=== PATIENT | female | born 1940 | race Caucasian/White ===

== ENCOUNTER 2018-05-13 19:45 | Emergency (ER) | payer MEDICARE, OTHER ==
[~2018-05-13] VITALS: Ht 165.1 cm; Wt 81.6 kg
[2018-05-13] MEDS ORDERED: TETANUS,DIPTH,PERTUSS P/F (BOOSTRIX) 0.5 ML VIAL IM ONE (20:30)
--- NOTE | 2018-05-13 20:30 | ED Fall/Injury ---
General Stated Complaint: CUT ON FACE FROM FALL,HIT HEAD, DIZZINESS,HIP PAIN Source: patient, family Exam Limitations: no limitations History of Present Illness Date Seen by Provider: May 13, 2018 Time Seen by Provider: 20:26 Initial Comments To ER per private vehicle from home with reports of a fall. She fell sometime this afternoon and struck the right side of her face where she has a laceration over the right eyebrow. She is uncertain whether or not she lost consciousness. She states that she might have gotten dizzy before she fell or she might have tripped but she is not entirely sure. She does state that she has been sleeping quite a lot lately about 16-20 hours a day. She has seen Dr. Dr. Frias for this which has been an ongoing problem for about a month. She states that Dr. Dr. Frias has done blood work and told her that she has depression and that' s why she was sleeping so much. She does agree that she does feel depressed. Patient states she did not want to come to the emergency room by his daughter insisted that she come. Occurred: just prior to arrival Severity: moderate Context: unknown Loss of Consciousness: unsure Associated Symptoms (Fall): No Headache, No Neck Pain Allergies and Home Medications Allergies Uncoded Allergies: PAIN MEDICATIONS (Adverse Reaction, 05/10/10) Patient Home Medication List Home Medication List Reviewed: Yes Review of Systems Review of Systems Constitutional: see HPI Eyes: No Symptoms Reported Ears, Nose, Mouth, Throat: no symptoms reported Respiratory: no symptoms reported Cardiovascular: no symptoms reported Musculoskeletal: no symptoms reported Skin: no symptoms reported Psychiatric/Neurological: No Symptoms Reported Past Rjnzzvj-Uljmnw-Zibzdh Hx Patient Social History Recent Foreign Travel: No Contact w/Someone Who Travel: No Physical Exam Vital Signs Vital Signs - First Documented 05/13/18 20:20 Temp 96.0 Pulse 73 Resp 14 B/P (MAP) 122/69 (86) Pulse Ox 96 O2 Delivery Room Air Capillary Refill : Height, Weight, BMI Height: '" Weight: lbs. oz. kg; BMI Method: General Appearance: WD/WN, no apparent distress HEENT: PERRL/EOMI, normal ENT inspection, other (2 semi-laceration to the lateral aspect of the right eyebrow.) Neck: non-tender, full range of motion Respiratory: normal breath sounds, no respiratory distress, no accessory muscle use Gastrointestinal: normal bowel sounds, non tender Neurologic/Psychiatric: alert, normal mood/affect, oriented x 3 Skin: normal color, warm/dry Clarisse Coma Score Best Eye Response: (4) Open Spontaneously Best Verbal Response: (5) Oriented Best Motor Response: (6) Obeys Commands Clarisse Total: 15 Procedures/Interventions Wound Location: Face Wound Length (cm): 2 Wound's Depth, Shape: linear, sub Q Wound Explored: clean Irrigated w/ Saline (ccs): 20 Anesthesia: 1% Lidocaine Volume Anesthetic (ccs): 2 Suture: Prolene Suture Size: 5-0 Number of Sutures: 4 Layer Closure?: 1 Number Deep Layer Sutures: 0 Progress Area anesthetized with 2 mL of 1% lidocaine without epinephrine. Wound then scrubbed with chlorhexidine/saline solution. Wound then irrigated with 20 mL of the same. Wound then sutured with 4 simple interrupted sutures size 5-0 Prolene. Progress/Results/Core Measures Results/Orders Lab Results Laboratory Tests Test 05/13/18 20:45 05/13/18 20:52 Range/Units White Blood Count 8.6 4.3-11.0 10^3/uL Red Blood Count 4.17 L 4.35-5.85 10^6/uL Hemoglobin 12.3 11.5-16.0 G/DL Hematocrit 37 35-52 % Mean Corpuscular Volume 90 80-99 FL Mean Corpuscular Hemoglobin 29 25-34 PG Mean Corpuscular Hemoglobin Concent 33 32-36 G/DL Red Cell Distribution Width 13.6 10.0-14.5 % Platelet Count 333 130-400 10^3/uL Mean Platelet Volume 9.5 7.4-10.4 FL Neutrophils (%) (Auto) 60 42-75 % Lymphocytes (%) (Auto) 29 12-44 % Monocytes (%) (Auto) 7 0-12 % Eosinophils (%) (Auto) 3 0-10 % Basophils (%) (Auto) 1 0-10 % Neutrophils # (Auto) 5.2 1.8-7.8 X 10^3 Lymphocytes # (Auto) 2.5 1.0-4.0 X 10^3 Monocytes # (Auto) 0.6 0.0-1.0 X 10^3 Eosinophils # (Auto) 0.3 0.0-0.3 10^3/uL Basophils # (Auto) 0.0 0.0-0.1 10^3/uL Sodium Level 140 135-145 MMOL/L Potassium Level 4.1 3.6-5.0 MMOL/L Chloride Level 106 98-107 MMOL/L Carbon Dioxide Level 23 21-32 MMOL/L Anion Gap 11 5-14 MMOL/L Blood Urea Nitrogen 26 H 7-18 MG/DL Creatinine 0.94 0.60-1.30 MG/DL Estimat Glomerular Filtration Rate 58 BUN/Creatinine Ratio 28 Glucose Level 108 H 70-105 MG/DL Calcium Level 10.2 H 8.5-10.1 MG/DL Corrected Calcium 8.5-10.1 MG/DL Total Bilirubin 0.5 0.1-1.0 MG/DL Aspartate Amino Transf (AST/SGOT) 24 5-34 U/L Alanine Aminotransferase (ALT/SGPT) 22 0-55 U/L Alkaline Phosphatase 77 40-136 U/L Total Protein 7.3 6.4-8.2 GM/DL Albumin 4.6 H 3.2-4.5 GM/DL Thyroid Stimulating Hormone (TSH) 1.13 0.35-4.94 UIU/ML Free Thyroxine 1.13 0.70-1.48 NG/DL Urine Color YELLOW Urine Clarity CLEAR Urine pH 6 5-9 Urine Specific Helotes 1.025 H 1.016-1.022 Urine Protein NEGATIVE NEGATIVE Urine Glucose (UA) NEGATIVE NEGATIVE Urine Ketones NEGATIVE NEGATIVE Urine Nitrite NEGATIVE NEGATIVE Urine Bilirubin NEGATIVE NEGATIVE Urine Urobilinogen NORMAL NORMAL MG/DL Urine Leukocyte Esterase 3+ H NEGATIVE Urine RBC (Auto) NEGATIVE NEGATIVE Urine RBC NONE /HPF Urine WBC 10-25 H /HPF Urine Squamous Epithelial Cells 10-25 H /HPF Urine Crystals NONE /LPF Urine Bacteria MODERATE H /HPF Urine Casts NONE /LPF Urine Mucus SMALL H /LPF Urine Culture Indicated YES My Orders Orders - ROSANNA KAMINSKI APRN Cbc With Automated Diff (05/13/18 20:18) Comprehensive Metabolic Panel (05/13/18 20:18) Ua Culture If Indicated (05/13/18 20:18) Ct Head/Cervical Spine Wo (05/13/18 20:18) Pelvis With Right Hip 2-3views (05/13/18 20:24) Thyroid Stimulating Hormone (05/13/18 20:24) Ekg Tracing (05/13/18 20:24) Free T4 (Free Thyroxine) (05/13/18 20:24) Dipht,Pertuss(Acell),Tet Adult (Boostrix (05/13/18 20:30) Lidocaine 1% Inj 20 Ml (Xylocaine 1% Inj (05/13/18 20:45) Urine Culture (05/13/18 20:52) Sulfamethoxazole/Trimet Ds Tab (Bactrim (05/13/18 21:30) Shoulder, Left, 3 Views (05/13/18 21:39) Medications Given in ED Current Medications Medications Dose Ordered Sig/James Route Start Time Stop Time Status Last Admin Dose Admin Diphtheria/ Tetanus/Acell Pertussis 0.5 ml ONCE ONCE IM 05/13/18 20:30 05/13/18 20:31 DC 05/13/18 21:21 0.5 ML Vital Signs/I&O 05/13/18 20:20 Temp 96.0 Pulse 73 Resp 14 B/P (MAP) 122/69 (86) Pulse Ox 96 O2 Delivery Room Air Departure Impression Primary Impression: Fall Qualified Codes: W19.XXXA - Unspecified fall, initial encounter Additional Impressions: Facial laceration Qualified Codes: S01.81XA - Laceration without foreign body of other part of head, initial encounter Urinary tract infection Qualified Codes: N30.00 - Acute cystitis without hematuria Disposition: HOME, SELF-CARE Condition: Stable Departure-Patient Inst. Decision time for Depature: 21:41 Referrals: RENETTA FRIAS DO (PCP) Primary Care Physician NO,LOCAL PHYSICIAN (Family) Primary Care Physician Patient Instructions: Laceration Repair With Stitches (DC) Add. Discharge Instructions: 1. Return to ER in 5-7 days to have the stitches removed at the time of your convenience. You may shower allowing water run over the starting tonight. Take the antibiotics as directed for the bladder infection. Return to ER for any worsening in the meantime. Call Dr. FRIAS tomorrow to make an appointment to be seen for follow-up. Scripts Sulfamethoxazole/Trimethoprim (Bactrim Ds Tablet) 1 Each Tablet 1 EACH PO BID, #10 TAB Prov: ROSANNA KAMINSKI APRN 05/13/18 Images Head/Face 1 - ROSANNA KAMINSKI APRN May 13, 2018 20:30
[2018-05-13] MEDS ORDERED: LIDOCAINE 1% INJ 20 ML 20 ML VIAL INJ ONE (20:45)
[2018-05-13 20:52] LABS: BASOPHILS % (AUTO) 1 % (0-10); EOSINOPHILS # (AUTO) 0.3 10^3/uL (0.0-0.3); EOSINOPHILS % (AUTO) 3 % (0-10); HEMATOCRIT 37 % (35-52); HEMOGLOBIN 12.3 G/DL (11.5-16.0); LYMPHOCYTES # (AUTO) 2.5 X 10^3 (1.0-4.0); LYMPHOCYTES % (AUTO) 29 % (12-44); MEAN CORPUSCULAR HEMOGLOBIN 29 PG (25-34); MEAN CORPUSCULAR HGB CONC 33 G/DL (32-36); MEAN CORPUSCULAR VOLUME 90 FL (80-99); MEAN PLATELET VOLUME 9.5 FL (7.4-10.4); MONOCYTES # (AUTO) 0.6 X 10^3 (0.0-1.0); MONOCYTES % (AUTO) 7 % (0-12); NEUTROPHILS # (AUTO) 5.2 X 10^3 (1.8-7.8); NEUTROPHILS % (AUTO) 60 % (42-75); PLATELET COUNT 333 10^3/uL (130-400); RED BLOOD COUNT 4.17 10^6/uL (4.35-5.85); RED CELL DISTRIBUTION WIDTH 13.6 % (10.0-14.5); WHITE BLOOD COUNT 8.6 10^3/uL (4.3-11.0)
[2018-05-13 20:57] LABS: BILIRUBIN,URINE NEGATIVE (NEGATIVE); CLARITY,URINE CLEAR; COLOR,URINE YELLOW; GLUCOSE, URINE (UA) NEGATIVE (NEGATIVE); KETONES,URINE NEGATIVE (NEGATIVE); LEUKOCYTE ESTERASE ,URINE 3+ (NEGATIVE); NITRITE,URINE NEGATIVE (NEGATIVE); PH,URINE 6 (5-9); PROTEIN,URINE NEGATIVE (NEGATIVE); UROBILINOGEN,URINE NORMAL (NORMAL)
[2018-05-13 21:04] LABS: BACTERIA,URINE MODERATE /HPF
[2018-05-13 21:09] LABS: ALANINE AMINOTRANSFERASE 22 U/L (0-55); ALBUMIN 4.6 GM/DL (3.2-4.5); ALKALINE PHOSPHATASE 77 U/L (40-136); BILIRUBIN,TOTAL 0.5 MG/DL (0.1-1.0); BUN/CREATININE RATIO 28; CALCIUM 10.2 MG/DL (8.5-10.1); CARBON DIOXIDE 23 MMOL/L (21-32); CHLORIDE 106 MMOL/L (98-107); CREATININE SERUM 0.94 MG/DL (0.60-1.30); GFR ESTIMATED 58; GLUCOSE 108 MG/DL (70-105); POTASSIUM 4.1 MMOL/L (3.6-5.0); SODIUM 140 MMOL/L (135-145); TOTAL PROTEIN 7.3 GM/DL (6.4-8.2)
--- NOTE | 2018-05-13 21:28 | Diagnostic Imaging Report ---
PROCEDURE: CT head and CT cervical spine without contrast. TECHNIQUE: Multiple contiguous axial images were obtained through the brain and cervical spine without the use of intravenous contrast. Sagittal and coronal reformations through the cervical spine were then performed. INDICATION: Fall, hit head COMPARISON: None available FINDINGS: Age-appropriate volume loss. No intracranial hemorrhage. No intracranial mass, mass effect, midline shift, herniation, hydrocephalus, or extra-axial fluid collection. No CT evidence of an acute ischemic infarction. The bilateral ocular lenses are absent. Mild right periorbital soft tissue swelling, particularly superior laterally. The globes are intact. Retrobulbar fat is unremarkable. The paranasal sinuses are clear. The calvarium is intact. Mild apex left curvature of the cervical spine. No significant retrolisthesis. Very minimal anterolisthesis of C7 on T1 measuring under 2 mm. No additional anterolisthesis or retrolisthesis. Alignment of the atlantooccipital joint is well maintained. Vertebral body heights are well-maintained. Mild multilevel disc space height loss without severe disc space height loss. No acute fracture or dislocation. No destructive osseous process. Scattered facet joint degenerative changes and uncovertebral joint hypertrophy. No high-grade osseous central canal stenosis. No apical pneumothorax. The paraspinal soft tissues are unremarkable. IMPRESSION: No acute intracranial abnormality. No acute osseous abnormality within the cervical spine with mild multilevel degenerative changes. Age-appropriate volume loss involving the brain. Mild right periorbital soft tissue swelling without underlying fracture. Dictated by: Dictated on workstation # [id number]
[2018-05-13 21:29] LABS: FREE T4 (FREE THYROXINE) 1.13 NG/DL (0.70-1.48)
[2018-05-13] MEDS ORDERED: TRIM/SULFAMETH 160/800 (SEPTRA DS) TAB PO ONE (21:30)
--- NOTE | 2018-05-13 21:32 | Diagnostic Imaging Report ---
INDICATION: Fall, pain COMPARISON: None available TECHNIQUE: 3 radiographs of the pelvis and right hip dated 05/13/2018. FINDINGS: Mild degenerative changes within the visualized lower lumbar spine. The sacroiliac joints are intact. No acute fracture or dislocation. No destructive osseous process. Mild degenerative changes of the bilateral hips. The right femoral head maintains normal shape and contour. IMPRESSION: No acute osseous abnormality with mild degenerative changes. Dictated by: Dictated on workstation # [id number]
[2018-05-13] MEDS ORDERED: SULF1TAB35 PO (21:43)
[2018-05-13 22:10] VITALS: BP 153/76
--- NOTE | 2018-05-13 22:27 | Diagnostic Imaging Report ---
INDICATION: Chronic left shoulder pain COMPARISON: None available. TECHNIQUE: 3 radiographs of the left shoulder dated 05/13/2018. FINDINGS: Mild degenerative changes of the acromioclavicular joint. No acute fracture or dislocation. No destructive osseous process. Subacromial space is well-maintained. Mild degenerative changes of the glenohumeral joint with inferiorly projecting osteophytes. Thinly circumscribed lucency associated with the superolateral humeral head is identified, favored to relate to subchondral cyst formation. The visualized left lung is clear. IMPRESSION: No acute osseous abnormality with mild degenerative changes. Dictated by: Dictated on workstation # [id number]
== END 2018-05-13 22:15 | disposition home or self-care (01) ==
LOC: EDUNIT# 19:45 → ER 19:48
DX: S01.81XA Laceration without foreign body of other part of head, initial encounter (principal); N39.0 Urinary tract infection, site not specified; F32.9 Major depressive disorder, single episode, unspecified; R40.2142 Coma scale, eyes open, spontaneous, at arrival to emergency department; R40.2252 Coma scale, best verbal response, oriented, at arrival to emergency department; R40.2362 Coma scale, best motor response, obeys commands, at arrival to emergency department; Z23 Encounter for immunization; Z88.6 Allergy status to analgesic agent; W01.198A Fall on same level from slipping, tripping and stumbling with subsequent striking against other object, initial encounter; Y92.009 Unspecified place in unspecified non-institutional (private) residence as the place of occurrence of the external cause
CPT/HCPCS: 36415; 70450; 72125; 73030; 80053; 81000; 84439; 84443; 85025; 87077; 87088; 90471; 90715; 93005

== ENCOUNTER → 2022-04-16 | Outpatient (CLI) | payer MEDICARE, OTHER ==
[~2022-04-16] MED LIST: RT-ALBUTEROL SULF 2.5 MG/3 ML PRE-MIX VIAL INH ONE; SULF1TAB38 PO
== END ==
LOC: RT 12:19
PROVIDERS: ATTEND Nurse Practitioner Family
DX: R05.3 Chronic cough (principal)
CPT/HCPCS: 94060; 94726; 94729

== ENCOUNTER 2023-01-31 16:22 | Emergency (ER) | payer MEDICARE, OTHER ==
[~2023-01-31] VITALS: Ht 170 cm; Wt 100.0 kg
[~2023-01-31 16:22] MED LIST changes: -RT-ALBUTEROL SULF 2.5 MG/3 ML PRE-MIX VIAL INH ONE
[2023-01-31 16:59] LABS: BASOPHILS # (AUTO) 0.1 10^3/uL (0.0-0.1); BASOPHILS % (AUTO) 1 % (0-10); EOSINOPHILS # (AUTO) 0.2 10^3/uL (0.0-0.3); EOSINOPHILS % (AUTO) 3 % (0-10); HEMATOCRIT 39 % (35-52); HEMOGLOBIN 12.7 g/dL (11.5-16.0); LYMPHOCYTES # (AUTO) 2.8 10^3/uL (1.0-4.0); LYMPHOCYTES % (AUTO) 42 % (12-44); MEAN CORPUSCULAR HEMOGLOBIN 29 pg (25-34); MEAN CORPUSCULAR HGB CONC 33 g/dL (32-36); MEAN CORPUSCULAR VOLUME 90 fL (80-99); MEAN PLATELET VOLUME 9.8 fL (9.0-12.2); MONOCYTES # (AUTO) 0.5 10^3/uL (0.0-1.0); MONOCYTES % (AUTO) 8 % (0-12); NEUTROPHILS % (AUTO) 46 % (42-75); PLATELET COUNT 274 10^3/uL (130-400); WHITE BLOOD COUNT 6.6 10^3/uL (4.3-11.0)
[2023-01-31 17:13] LABS: POTASSIUM 4.4 MMOL/L (3.6-5.0)
[2023-01-31 17:15] LABS: CALCIUM 9.7 MG/DL (8.5-10.1)
[2023-01-31 17:19] LABS: CREATININE SERUM 0.87 MG/DL (0.60-1.30)
[2023-01-31 17:21] LABS: MAGNESIUM 2.4 MG/DL (1.6-2.4)
[2023-01-31] MEDS ORDERED: METO-351 PO (17:29)
[2023-01-31] MEDS ORDERED: APIX5TAB PO (17:29)
[2023-01-31] MEDS ORDERED: APIXABAN 5 MG TABLET PO ONE (17:30)
--- NOTE | 2023-01-31 17:31 | ED Cardiac General ---
History of Present Illness General Chief Complaint: Cardiac/General Problems Stated Complaint: AFIB FROM [facility] Nursing Triage Note: PT TO RM 1 SENT FROM [facility] IN NEW A FIB, STATES SHE HAS BEEN FALLING ABOUT 3 TIMES IN THE LAST MONTH Source: patient Exam Limitations: no limitations History of Present Illness Date Seen by Provider: Jan 31, 2023 Time Seen by Provider: 16:38 Initial Comments 82-year-old female presents emergency department today for atrial fibrillation. She was seen at the [facility] clinic for routine appointment and found to be in A-fib and sent here for further evaluation. She is asymptomatic All other systems reviewed and negative except documented per HPI. Voice recognition software was used to help create this chart ASA po MEDICAL SOCIAL WORKER: No Allergies and Home Medications Allergies Uncoded Allergies: PAIN MEDICATIONS (Adverse Reaction, Unknown, 04/16/22) Patient Home Medication List Home Medication List Reviewed: Yes Sulfamethoxazole/Trimethoprim (Bactrim Ds Tablet) 1 Each Tablet, 1 EACH PO BID Prescribed by: ROSANNA KAMINSKI on 05/13/182142 Review of Systems Review of Systems Constitutional: see HPI Past Pituzdz-Montsf-Klphqx Hx Patient Social History Tobacco Use?: No Smokeless Tobacco Frequency: Former User Substance use?: No Alcohol Use?: No Seasonal Allergies Seasonal Allergies: Yes Past Medical History Surgery/Hospitalization HX: A FIB, INCONTINENCE, ANXIETY, DEPRESSION, RT HAND TRAUMA Surgeries: Yes Amputation Respiratory: Yes Chronic Bronchitis Currently Using CPAP: No Currently Using BIPAP: No Cardiac: No Neurological: No Genitourinary: No Gastrointestinal: No Musculoskeletal: No Endocrine: No HEENT: Yes Cataract Cancer: No Psychosocial: No Integumentary: No Blood Disorders: No Physical Exam Vital Signs Vital Signs - First Documented 01/31/23 16:34 Temp 36.7 Pulse 92 Resp 18 B/P (MAP) 152/103 (119) O2 Delivery Room Air Capillary Refill : Less Than 3 Seconds Height, Weight, BMI Height: 5'5.00" Weight: 180lbs. oz. 81.292491gk; 34.00 BMI Method:Estimated General Appearance: No Apparent Distress, WD/WN HEENT: Normal ENT Inspection Neck: Full Range of Motion, Supple Respiratory: Chest Non Tender, Lungs Clear, Normal Breath Sounds, No Accessory Muscle Use, No Respiratory Distress Cardiovascular: No Murmur, Normal Peripheral Pulses, Irregularly Irregular Gastrointestinal: No Organomegaly, Non Tender, Soft Extremity: Normal Capillary Refill, Normal Inspection, Normal Range of Motion Neurologic/Psychiatric: Alert, Oriented x3, No Motor/Sensory Deficits Skin: Normal Color, Warm/Dry Procedures/Interventions Suture Size: 5-0 Progress/Results/Core Measures Results/Orders Lab Results Laboratory Tests Test 01/31/23 16:53 Range/Units White Blood Count 6.6 4.3-11.0 10^3/uL Red Blood Count 4.33 3.80-5.11 10^6/uL Hemoglobin 12.7 11.5-16.0 g/dL Hematocrit 39 35-52 % Mean Corpuscular Volume 90 80-99 fL Mean Corpuscular Hemoglobin 29 25-34 pg Mean Corpuscular Hemoglobin Concent 33 32-36 g/dL Red Cell Distribution Width 12.8 10.0-14.5 % Platelet Count 274 130-400 10^3/uL Mean Platelet Volume 9.8 9.0-12.2 fL Immature Granulocyte % (Auto) 0 % Neutrophils (%) (Auto) 46 42-75 % Lymphocytes (%) (Auto) 42 12-44 % Monocytes (%) (Auto) 8 0-12 % Eosinophils (%) (Auto) 3 0-10 % Basophils (%) (Auto) 1 0-10 % Neutrophils # (Auto) 3.0 1.8-7.8 10^3/uL Lymphocytes # (Auto) 2.8 1.0-4.0 10^3/uL Monocytes # (Auto) 0.5 0.0-1.0 10^3/uL Eosinophils # (Auto) 0.2 0.0-0.3 10^3/uL Basophils # (Auto) 0.1 0.0-0.1 10^3/uL Immature Granulocyte # (Auto) 0.0 0.0-0.1 10^3/uL Sodium Level 137 135-145 MMOL/L Potassium Level 4.4 3.6-5.0 MMOL/L Chloride Level 107 98-107 MMOL/L Carbon Dioxide Level 17 L 21-32 MMOL/L Anion Gap 13 5-14 MMOL/L Blood Urea Nitrogen 20 H 7-18 MG/DL Creatinine 0.87 0.60-1.30 MG/DL Estimat Glomerular Filtration Rate 67 BUN/Creatinine Ratio 23 Glucose Level 91 70-105 MG/DL Calcium Level 9.7 8.5-10.1 MG/DL Magnesium Level 2.4 1.6-2.4 MG/DL My Orders Orders - AUGUSTA ELLIS DO Ekg Tracing (01/31/23 16:34) Basic Metabolic Panel (01/31/23 16:42) Ekg Tracing (01/31/23 16:42) Thyroid Stimulating Hormone (01/31/23 16:42) Magnesium (01/31/23 16:42) Cbc With Automated Diff (01/31/23 16:42) Apixaban Tablet (Apixaban Tablet) (01/31/23 17:30) Metoprolol Succinate (Xl) Tab (Metoprolo (01/31/23 17:30) Vital Signs/I&O 01/31/23 16:34 Temp 36.7 Pulse 92 Resp 18 B/P (MAP) 152/103 (119) O2 Delivery Room Air Blood Pressure Mean: 119 Departure Communication (Admissions) Patient is hemodynamically stable. Heart rate mostly in the 80s to mid 90s. Blood pressure stable. She is not having any symptoms of dizziness lightheadedness or chest pain. This is new onset. I spoke with Dr. Cervantes who recommends Toprol-XL, 25 mg daily, Eliquis 5 mg twice daily and follow-up with Dr. Laboy. Her electrolytes are normal and I have independently reviewed all lab findings. CBC shows no evidence for anemia. She be discharged home in stable condition. She is comfortable agreeable current plan of care questions were sought and answered. Impression Primary Impression: Atrial fibrillation Qualified Codes: I48.0 - Paroxysmal atrial fibrillation Disposition: 01 HOME, SELF-CARE Condition: Stable Departure-Patient Inst. Referrals: [facility] (PCP/Family) Primary Care Physician Patient Instructions: Atrial fibrillation Add. Discharge Instructions: Your heart is in a rhythm called atrial fibrillation. I spoke with her heart doctor and he wants you to start Toprol XL, 25 mg a day as well as Eliquis, 5 mg twice a day. The first doses have been given to you here and you will need to pick the remainder of your pharmacy tomorrow. I do recommend you call Dr. Laboy's office to schedule a follow-up appointment. The contact information has been provided and you will need to call to schedule this. Return to the emergency department for any chest pain, dizziness shortness of breath or if your symptoms change in any way concerning to you. With your primary doctor within the next month or so All discharge instructions reviewed with patient and/or family. Voiced understanding. Scripts Apixaban (Eliquis) 5 Mg Tablet 5 MG PO BID for 30 Days, #6 TAB Prov: AUGUSTA ELLIS DO 01/31/23 Metoprolol Succinate (Toprol Xl) 25 Mg Tab.er.24h 25 MG PO DAILY for 30 Days, #30 TAB Prov: AUGUSTA ELLIS DO 01/31/23 AUGUSTA ELLIS DO Jan 31, 2023 17:31
[2023-01-31 17:45] VITALS: BP 144/71
== END 2023-01-31 17:50 | disposition home or self-care (01) ==
LOC: EDUNIT# 16:22 → ER 16:29
DX: I48.91 Unspecified atrial fibrillation (principal); Z87.891 Personal history of nicotine dependence
CPT/HCPCS: 36415; 80048; 83735; 84443; 85025; 93005

== ENCOUNTER → 2023-03-19 | Outpatient (CLI) | payer MEDICARE, OTHER ==
[~2023-03-19] MED LIST changes: +APIX5TAB PO; +METO-351 PO
== END ==
LOC: CARD 09:45
PROVIDERS: ATTEND Internal Medicine Cardiovascular Disease
DX: I08.3 Combined rheumatic disorders of mitral, aortic and tricuspid valves (principal); I48.0 Paroxysmal atrial fibrillation
CPT/HCPCS: 93306

== ENCOUNTER → 2023-04-03 | Outpatient (CLI) | payer MEDICARE, OTHER ==
[~2023-04-03] MED LIST changes: +CATHETER FLUSH 10 ML SYR IVP PRN; +REGADENOSON 0.4 MG/5 ML SYR IV ONE
[2023-04-03 09:11] VITALS: BP 195/63
--- NOTE | 2023-04-03 16:08 | Cardiology Stress Test Report ---
Stress Test Report Date of Procedure/Referring: Date of Procedure: Apr 03, 2023 [facility] Admitting Physician Admitting Physician: Attending Physician: Sg Laboy MD Baseline Heart Rate: 97 Baseline Blood Pressure: Blood Pressure Systolic: 195 Blood Pressure Diastolic: 63 Baseline Vitals Vital Signs Date Time Temp Pulse Resp B/P (MAP) Pulse Ox O2 Delivery O2 Flow Rate FiO2 04/03/23 09:11 97 195/63 (107) Baseline EKG: Baseline EKG: NSR Summary After explaining the procedure to the patient, she signed a consent and then brought to the stress nuclear laboratory. Patient received 0.4 mg Lexiscan for stress test, ECG, heart rate and blood pressure were monitored continuously. Resting and stress dose of radio tracer were injected, imaging was acquired and reviewed in short axis, horizontal long axis and vertical long axis views. TID: 0.79 SSS: 2 SDS: 2 EF: 71 Patient tolerated Lexiscan well Baseline atrial fibrillation persisted during test No significant ischemia or infarction noted on SPECT images Normal left ventricular size, ejection fraction 71%, gated images are unreliable due to underlying atrial fibrillation Copy Copies To 1: [facility]/ SG LABOY MD Apr 03, 2023 16:08
== END ==
LOC: CARD 07:11
PROVIDERS: ATTEND Internal Medicine Cardiovascular Disease
DX: I48.0 Paroxysmal atrial fibrillation (principal)
CPT/HCPCS: 78452; 93017; A9502